=== PATIENT | female | born 1955 | race Caucasian/White ===

== ENCOUNTER 2018-06-24 11:45 | Emergency (ER) | payer OTHER ==
[2018-06-24 11:54] VITALS: BMI 29.8
[2018-06-24] MEDS ORDERED: IBUPROFEN 400 MG TABLET (FP) PO ONE ×2 (11:58→12:35)
--- NOTE | 2018-06-24 12:05 | PDOC ---
History of Present Illness - General Chief Complaint: Injury Stated Complaint: LEFT KNEE PAIN Time Seen by Provider: 06/24/18 11:50 History Source: Patient Exam Limitations: No Limitations - History of Present Illness Initial Comments: 06/24/18 12:00 62y F hx of cerbral palsy presents with L knee pain sp mechanical fall yesterday. Pt states the pavement in front of her apt was alittle bump, she fell down on her L knee without any oth erinjuries, head trauma, or LOC. Pt denies any associated cp, sob, palpitations, dizziness, abd pain, back pain, neck pain, numbness/tingling/waekness, dysuria, frequency, diarrhea, f/c. It doesnt hurt much whens he touches it or moves, but more when she is standing or weight bearing. She took motrin/tylenol last night without significant improvement. The pain is worse today so she presented for evaluation. Constitutional - no reported Fever, Chills, HEENT: no reported vision changes, Respiratory: no reported cough, sob, Cardiac: no reported chest pain, palpitations, light headedness, leg swelling Abd/GI: no reported abd pain, nausea, vomiting, blood per rectum, melena, diarrhea : no reported dysuria, frequency, discharge Musculskelatal - +L knee pain no reported back pain, joint swelling skin - no reported bruising, erythema, rash neurological: no reported headache, numbness, focal weakness, tingling, ataxia, hematologic: no reported easy bruising, easy bleeding GENERAL: The patient is awake, alert, and fully oriented, Nontoxic - in no acute distress. HEAD: Normocephalic, atraumatic. NECK: Normal range of motion, supple, no focal midline ttp EXTREMITIES: Normal range of motion of all extremities and joints, no notbable swelling/brusing, minimal ttp on L ptella with superficial abrasion, no bleeding NEUROLOGICAL: No facial assymetry, Normal speech, contracted L hand, otherwise moving all 4 ext sponaneously and symmetically PSYCH: Normal mood, normal affect. SKIN: Warm, Dry, normal turgor, xray to ro fx motrin for pain suspect contusion Past History - Past Medical History Allergies/Adverse Reactions: Allergies Allergy/AdvReac Type Severity Reaction Status Date / Time No Known Allergies Allergy Verified 06/24/18 11:46 Home Medications: Ambulatory Orders Acetaminophen [Tylenol] 650 mg PO ONCE PRN 06/24/18 Ibuprofen [Advil -] 600 mg PO ONCE PRN 06/24/18 Keppra - 1 tab PO BID 06/24/18 Naproxen Sodium [Aleve] 440 mg PO ONCE PRN 06/24/18 Phenytoin Na Extended [Dilantin -] 100 mg PO ASDIR 06/24/18 COPD: No Other medical history: CP - Suicide/Smoking/Psychosocial Hx Smoking History: Never smoked Have you smoked in the past 12 months: No Information on smoking cessation initiated: No Hx Alcohol Use: No Drug/Substance Use Hx: No *Physical Exam - Vital Signs Last Vital Signs Temp Pulse Resp BP Pulse Ox 98.6 F 88 20 120/69 97 06/24/18 11:45 06/24/18 11:45 06/24/18 11:45 06/24/18 11:45 06/24/18 11:45 Medical Decision Making - Medical Decision Making 06/24/18 12:45 xray negative for acute process will dc with supportive care I discussed the physical exam findings, ancillary test results and final diagnoses with the patient. I answered all of the patient's questions. The patient was satisfied with the care received and felt comfortable with the discharge plan and treatment plan. The patient will call their primary care physician within 24 hours to arrange follow-up and will return to the Emergency Department with any new, persistent or worsening symptoms. *DC/Admit/Observation/Transfer Diagnosis at time of Disposition: Knee pain, left Qualifiers: Chronicity: acute Qualified Code(s): M25.562 - Pain in left knee - Discharge Dispostion Disposition: HOME Condition at time of disposition: Stable Decision to Admit order: No - Referrals Referrals: Sen Ervin MD [Staff Physician] - - Patient Instructions Printed Discharge Instructions: DI for Knee Pain Additional Instructions: Return to the emergency department immediately with ANY new, persistent or worsening symptoms. Take Motrin 400 mg 4 times a day. Try to rest. Keep your leg elevated to minimize swelling. You MUST call and follow up with your doctor in 5-6 days for further evaluation of your symptoms. Results were discussed with you. Please make sure your doctor reviews the results of your emergency evaluation. If you had any xrays during your visit, it was read preliminarily by myself, a Radiologist will review it and if there are any additional findings we will call you. Print Language: CENTRAL AFRICAN - Post Discharge Activity
[2018-06-24 13:05] VITALS: TEMP 98.6
== END 2018-06-24 13:32 | disposition home or self-care (01) ==
LOC: FER 11:45
DX: M25.562 Pain in left knee (principal); G80.9 Cerebral palsy, unspecified; W01.0XXA Fall on same level from slipping, tripping and stumbling without subsequent striking against object, initial encounter; Y93.01 Activity, walking, marching and hiking; Y92.480 Sidewalk as the place of occurrence of the external cause
CPT/HCPCS: 73562-TC-LT-FY; 99281-25